=== PATIENT | male | born 1945 | race Caucasian/White ===

== ENCOUNTER 2019-09-11 02:35 | Inpatient (IN) | payer MEDICARE, OTHER ==
[~2019-09-11] VITALS: Ht 185.4 cm; Wt 149.1 kg
[~2019-09-11 02:35] MED LIST: ACTOS15 MG PO; ACTOS30 MG PO; AMITRIPTYLIN25 MG PO; APIDRA100 UNIT/M SC; BABY ASPIRIN81 MG PO; BD INS 0.5ML 31G5/16 SC; BD INSULIN SC; BENAZEPRIL10 M1 OR; BENAZEPRIL10 M1 PO; CIPROFLOXACN500 MG PO; COZAAR25 MG PO; CYMBALTA30 MG PO; DOXYCYCL HYC100 MG PO; FAMOTIDINE20 M3 PO; FUROSEMIDE20 MG PO; FUROSEMIDE40 MG PO; GABAPENTIN300 MG PO; GLUCOVANC1 OR; HUMALOG 751000 UNITS SC; HUMALOG KW75 MG/25 K SC; HUMALOG100 MG/ML SC; HUMALOG100 UNIT/M; HUMULI1 SC; INSULIN SY SC; INSULIN SY0.3 MG/36; INSULIN SY0.3 MG/36 SC; IRON27 MG PO; KEFLEX500 MG PO; LEVEMIR1000 UNITS SC; LIORESAL10 MG/TA1 PO; LIPITOR40 M1 PO; LOSARTAN POT100 MG PO; LOSARTAN POT50 MG PO; LYRICA75 MG PO; MELOXICAM15 MG PO; METFORMIN500 M2 PO; METHOCARBAM500 MG PO; METHOCARBAMOL500 MG PO; METO50TA52 PO; MUPIROCIN2 % EX; NEURONTIN600 MG PO; NEXIUM40 M1 PO; NORTHERA100 MG PO; NORVASC5 M1 PO; NOVOLIN R IJ; NOVOLOG100 IU/1 M SC; OMEPRAZOLE20 M1 PO; OMEPRAZOLE20 MG OR; OMEPRAZOLE20 MG PO; OXYCODO-APAP1 TA2 PO; PANTOPRAZOLE SO40 M1 PO; PAROXETINE20 MG PO; PAROXETINE40 MG PO; PEPCID20 MG PO; PRAMIPEXOLE0.25 MG PO; PRILOSEC20 MG PO; SIMVASTATIN10 MG PO; SIMVASTATIN5 MG PO; TOUJEO SOL300 UNIT/M SC; TRAMADOL HCL50 MG PO; TRESIBA FL100 UNIT/M SC; TRIAM/NYSTAT TOP; TRIAMCINOLON0.11 EX; TRULICITY1.5 MG/0.5 SC; ULTRAM50 M1 PO; VENLAFAXINE HCL75 M1 PO; VENLAFAXINE37.5 M1 PO; VENLAFAXINE75 M1 PO; VICTOZA18 MG/3 ML SC; VITAMIN D50000 UNIT PO; [UNRECOGNIZED DRUG - OTHER] SC; [UNRECOGNIZED DRUG - OTHER] SC; [UNRECOGNIZED DRUG - OTHER] SC; [UNRECOGNIZED DRUG - OTHER] XX
[2019-09-11 05:17] LABS: HEMATOCRIT 32.4 % (39.0-50.0); HEMOGLOBIN 10.8 g/dl (14.0-18.0); IMMATURE GRANULOCYTES 0.5 % (0.0-5.0); MEAN CELL VOLUME 103.2 fL CALC (80.0-100.0); MEAN CORPUSCULAR HGB 34.4 pG CALC (26.0-32.0); MEAN CORPUSCULAR HGB CONC 33.3 g/dL CAL (32.0-36.0); RED BLOOD COUNT 3.14 mill/uL (4.70-6.10); RED CELL DISTRI WIDTH 14.1 % (11.5-15.5)
[2019-09-11 05:19] LABS: PROTHROMBIN TIME 10.6 SECONDS (9.0-12.5)
[2019-09-11 05:26] LABS: ALBUMIN 3.9 g/dL (3.2-5.0); BILIRUBIN, TOTAL 2.2 mg/dL (0.0-1.4); CREATININE 3.4 mg/dL (0.7-1.3); MAGNESIUM 1.5 mg/dL (1.6-2.3); POTASSIUM 4.8 mmol/l (3.5-5.1); TOTAL PROTEIN 7.2 g/dL (6.3-8.2)
[2019-09-11 07:40] VITALS: BP 142/64
[2019-09-11 09:50] LABS: URINE BILIRUBIN - DIPSTICK NEGATIVE (NEGATIVE); URINE BLOOD DIPSTICK TRACE-INTACT (NEGATIVE); URINE COLOR YELLOW; URINE GLUCOSE - DIPSTICK NEGATIVE (NEGATIVE); URINE KETONE NEGATIVE (NEGATIVE); URINE LEUK ESTERASE NEGATIVE (NEGATIVE); URINE NITRITE - DIPSTICK NEGATIVE (Negative); URINE PROTEIN - DIPSTICK 100 mg/dL (NEG-TRACE); URINE SPECIFIC GRAVITY 1.025; URINE UROBILINOGEN - DIPSTICK 0.2 E.U./dL (0.2)
[2019-09-11 10:12] LABS: URINE MUCUS MODERATE hpf (NONE-FEW); URINE RBC 0-2 RBC/hpf (0-5)
[2019-09-11] MEDS ORDERED: TRESIBA FL200 UNIT/M (10:42)
[2019-09-11] MEDS ORDERED: EFFEXOR75 MG PO (10:44)
[2019-09-11] MEDS ORDERED: LOSARTAN POTASS25 MG PO (10:44)
[2019-09-11] MEDS ORDERED: PROTONIX40 M2 PO (10:44)
[2019-09-11] MEDS ORDERED: WEEKLY-D1.25 MG PO (10:46)
[2019-09-11 11:00] VITALS: BP 113/61
[2019-09-11 15:36] VITALS: BP 109/61
[2019-09-11] MEDS ORDERED: APIDRA100 UNIT/M (16:05)
[2019-09-11 18:15] VITALS: BP 98/50
[2019-09-11 18:20] VITALS: BP 114/50
[2019-09-11 18:25] VITALS: BP 61/35
== END 2019-09-11 22:46 | disposition left against medical advice (07) | DRG 684 ==
LOC: ED 02:35 → ED-I 06:11 → ED 06:32 → MS2 06:33
PROVIDERS: ADMIT Internal Medicine; ATTEND Internal Medicine
DX: N17.9 Acute kidney failure, unspecified (principal); I12.9 Hypertensive chronic kidney disease with stage 1 through stage 4 chronic kidney disease, or unspecified chronic kidney disease; E11.22 Type 2 diabetes mellitus with diabetic chronic kidney disease; N18.3 Chronic kidney disease, stage 3 (moderate); E86.0 Dehydration; I95.1 Orthostatic hypotension; R19.7 Diarrhea, unspecified; R53.1 Weakness; I27.20 Pulmonary hypertension, unspecified; Z79.4 Long term (current) use of insulin; Z20.828 Contact with and (suspected) exposure to other viral communicable diseases

== ENCOUNTER 2020-01-26 13:55 | Emergency (ER) | payer MEDICARE, OTHER ==
[~2020-01-26] VITALS: Ht 185.4 cm; Wt 145.0 kg
[~2020-01-26 13:55] MED LIST changes: +APIDRA100 UNIT/M; +EFFEXOR75 MG PO; +LOSARTAN POTASS25 MG PO; +PROTONIX40 M2 PO; +TRESIBA FL200 UNIT/M; +WEEKLY-D1.25 MG PO
[2020-01-26 14:19] LABS: HEMATOCRIT 29.9 % (39.0-50.0); HEMOGLOBIN 9.8 g/dl (14.0-18.0); IMMATURE GRANULOCYTES 0.7 % (0.0-5.0); MEAN CELL VOLUME 105.7 fL CALC (80.0-100.0); MEAN CORPUSCULAR HGB 34.6 pG CALC (26.0-32.0); MEAN CORPUSCULAR HGB CONC 32.8 g/dL CAL (32.0-36.0); NEUT# 5.65 thou/uL (1.82-7.42); RED BLOOD COUNT 2.83 mill/uL (4.70-6.10); RED CELL DISTRI WIDTH 13.8 % (11.5-15.5)
[2020-01-26 14:59] LABS: ACT PARTIAL THROMBO TIME 23.6 SECONDS (20.0-32.5); ALBUMIN 3.6 g/dL (3.2-5.0); ALKALINE PHOSPHATASE 198 u/l (38-126); ANION GAP 14 (6-22 (CALC)); BUN 47 mg/dL (8-23); BUN/CREATININE RATIO 19 (12-20 (CALC)); CARBON DIOXIDE 21 mmol/l (22-30); CHLORIDE 104 mmol/l (95-108); CREATININE 2.5 mg/dL (0.7-1.3); ETHYL ALCOHOL 0 mg/dl (0-30); GFR 25 ML/MIN (>=60 (CALC)); GFR FOR AFR.AMER. 31 ML/MIN (>=60 (CALC)); LIPASE 239 u/l (23-300); PROTHROMBIN TIME 10.2 SECONDS (9.0-12.5); SGOT/AST 33 u/l (19-48); SODIUM 133 mmol/l (137-146); TOTAL PROTEIN 6.6 g/dL (6.3-8.2)
[2020-01-26 15:15] LABS: POTASSIUM 5.5 mmol/l (3.5-5.1)
[2020-01-26 16:06] VITALS: BP 168/79
[2020-01-26 17:05] LABS: URINE BILIRUBIN - DIPSTICK NEGATIVE (NEGATIVE); URINE BLOOD DIPSTICK TRACE-LYSED (NEGATIVE); URINE COLOR YELLOW; URINE GLUCOSE - DIPSTICK NEGATIVE (NEGATIVE); URINE KETONE NEGATIVE (NEGATIVE); URINE LEUK ESTERASE NEGATIVE (NEGATIVE); URINE NITRITE - DIPSTICK NEGATIVE (Negative); URINE PH 5.5 (4.5-8.0); URINE PROTEIN - DIPSTICK 100 mg/dL (NEG-TRACE); URINE SPECIFIC GRAVITY 1.025; URINE UROBILINOGEN - DIPSTICK 0.2 E.U./dL (0.2)
[2020-01-26 17:16] LABS: URINE SQUAMOUS EPITHELIAL CELL FEW EPI/hpf (0-FEW); URINE WBC 0-2 WBC/hpf (0-5)
== END 2020-01-26 16:06 | disposition home or self-care (01) ==
LOC: ED 13:55
DX: R53.1 Weakness (principal); E11.22 Type 2 diabetes mellitus with diabetic chronic kidney disease; N18.9 Chronic kidney disease, unspecified; D64.9 Anemia, unspecified; I27.20 Pulmonary hypertension, unspecified; S90.812A Abrasion, left foot, initial encounter; S90.811A Abrasion, right foot, initial encounter; S40.812A Abrasion of left upper arm, initial encounter; S40.811A Abrasion of right upper arm, initial encounter; W01.0XXA Fall on same level from slipping, tripping and stumbling without subsequent striking against object, initial encounter; Y92.009 Unspecified place in unspecified non-institutional (private) residence as the place of occurrence of the external cause; Z79.4 Long term (current) use of insulin

== ENCOUNTER 2021-08-28 09:48 | Emergency (ER) | payer MEDICARE, OTHER ==
[2021-08-28] VITALS (7 sets, daily range): BP systolic 139–159; BP diastolic 52–70
[~2021-08-28] VITALS: Ht 185.4 cm; Wt 136.0 kg
[2021-08-28 10:42] LABS: HEMOGLOBIN 8.9 g/dl (14.0-18.0); IMMATURE GRANULOCYTES 1.3 % (0.0-5.0); MEAN CELL VOLUME 116.7 fL CALC (80.0-100.0); MEAN CORPUSCULAR HGB 37.1 pG CALC (26.0-32.0); MEAN CORPUSCULAR HGB CONC 31.8 g/dL CAL (32.0-36.0); NEUT# 2.65 thou/uL (1.82-7.42); RED BLOOD COUNT 2.4 mill/uL (4.70-6.10); RED CELL DISTRI WIDTH 16.3 % (11.5-15.5)
[2021-08-28 11:00] LABS: ALBUMIN 3.5 g/dL (3.2-5.0); CREATININE 2.5 mg/dL (0.7-1.3); TOTAL PROTEIN 6.7 g/dL (6.3-8.2)
[2021-08-28 11:05] LABS: BILIRUBIN, TOTAL 0.7 mg/dL (0.0-1.4); POTASSIUM 6.1 mmol/l (3.5-5.1)
[2021-08-28 14:34] LABS: CREATININE 2.4 mg/dL (0.7-1.3)
[2021-08-28 14:35] LABS: POTASSIUM 5.6 mmol/l (3.5-5.1)
[2021-08-28] MEDS ORDERED: SPS15 GM/601 PO ×2 (14:57→18:19)
[2021-08-28] MEDS ORDERED: ALL DAY10 MG PO ×2 (15:04→15:13)
== END 2021-08-28 15:15 | disposition home or self-care (01) ==
LOC: ED 09:48
PROVIDERS: Family Medicine
DX: E87.5 Hyperkalemia (principal); E87.70 Fluid overload, unspecified; I12.9 Hypertensive chronic kidney disease with stage 1 through stage 4 chronic kidney disease, or unspecified chronic kidney disease; E11.22 Type 2 diabetes mellitus with diabetic chronic kidney disease; N18.9 Chronic kidney disease, unspecified; Z79.4 Long term (current) use of insulin; E11.42 Type 2 diabetes mellitus with diabetic polyneuropathy; E66.9 Obesity, unspecified

== ENCOUNTER 2021-08-31 19:21 | Emergency (ER) | payer MEDICARE, OTHER ==
[~2021-08-31] VITALS: Ht 185.4 cm; Wt 133.6 kg
[2021-08-31] VITALS (18 sets, daily range): BP systolic 72–122; BP diastolic 37–80
[~2021-08-31 19:21] MED LIST changes: +ALL DAY10 MG PO; +SPS15 GM/601 PO
[2021-08-31 19:52] LABS: HEMOGLOBIN 9.8 g/dl (14.0-18.0); IMMATURE GRANULOCYTES 0.4 % (0.0-5.0); MEAN CELL VOLUME 118.3 fL CALC (80.0-100.0); MEAN CORPUSCULAR HGB 37.4 pG CALC (26.0-32.0); MEAN CORPUSCULAR HGB CONC 31.6 g/dL CAL (32.0-36.0); NEUT# 9.3 thou/uL (1.82-7.42); RED BLOOD COUNT 2.62 mill/uL (4.70-6.10); RED CELL DISTRI WIDTH 16.7 % (11.5-15.5)
[2021-08-31 20:17] LABS: ALBUMIN 3.2 g/dL (3.2-5.0); BILIRUBIN, TOTAL 0.9 mg/dL (0.0-1.4); CREATININE 3.4 mg/dL (0.7-1.3); MAGNESIUM 1.6 mg/dL (1.6-2.3); POTASSIUM 5.4 mmol/l (3.5-5.1); TOTAL PROTEIN 6.3 g/dL (6.3-8.2)
[2021-08-31] MEDS ORDERED: PROMETHAZINE HY25 M1 PO (22:35)
[2021-08-31] MEDS ORDERED: IMODIUM2 MG PO (22:35)
[2021-09-01 00:01] VITALS: BP 104/53
[2021-09-01 00:16] VITALS: BP 104/53
== END 2021-09-01 00:10 | disposition home or self-care (01) ==
LOC: ED 19:21
PROVIDERS: Family Medicine
DX: E86.0 Dehydration (principal); E87.5 Hyperkalemia; E11.22 Type 2 diabetes mellitus with diabetic chronic kidney disease; N18.9 Chronic kidney disease, unspecified; I27.20 Pulmonary hypertension, unspecified; C95.90 Leukemia, unspecified not having achieved remission; F17.200 Nicotine dependence, unspecified, uncomplicated; Z79.4 Long term (current) use of insulin; Z20.822 Contact with and (suspected) exposure to COVID-19

== ENCOUNTER 2021-09-04 09:00 | Observation (INO) | payer MEDICARE, OTHER ==
[~2021-09-04] VITALS: Ht 185.4 cm; Wt 131.0 kg
[~2021-09-04 09:00] MED LIST changes: +IMODIUM2 MG PO; +PROMETHAZINE HY25 M1 PO
--- NOTE | 2021-09-04 09:00 | NUR ---
BEDSIDE REPORT FROM [facility]
[2021-09-04 09:30] LABS: HEMATOCRIT 25.5 % (39.0-50.0); HEMOGLOBIN 8.5 g/dl (14.0-18.0); IMMATURE GRANULOCYTES 1.6 % (0.0-5.0); MEAN CORPUSCULAR HGB 36.8 pG CALC (26.0-32.0); MEAN CORPUSCULAR HGB CONC 33.3 g/dL CAL (32.0-36.0); NEUT# 2.18 thou/uL (1.82-7.42); RED BLOOD COUNT 2.31 mill/uL (4.70-6.10); RED CELL DISTRI WIDTH 16.1 % (11.5-15.5)
[2021-09-04 09:31] LABS: MEAN CELL VOLUME 110.4 fL CALC (80.0-100.0)
--- NOTE | 2021-09-04 09:40 | NUR ---
Reassessment of patient completed. No distress noted.
[2021-09-04 09:48] LABS: ALBUMIN 3.3 g/dL (3.2-5.0); BILIRUBIN, TOTAL 0.8 mg/dL (0.0-1.4); TOTAL PROTEIN 6.5 g/dL (6.3-8.2)
[2021-09-04 10:00] LABS: CREATININE 2.3 mg/dL (0.7-1.3); POTASSIUM 5.6 mmol/l (3.5-5.1)
--- NOTE | 2021-09-04 11:21 | NUR ---
Reassessment of patient completed. No distress noted.
--- NOTE | 2021-09-04 12:33 | NUR ---
PT STABLE FOR TRANSFER TO [facility]. REPORT GIVEN TO SAV AT BEDSIDE. Reassessment of patient completed. No distress noted.
[2021-09-04 13:00] VITALS: BP 155/93
--- NOTE | 2021-09-04 13:41 | NUR ---
RECEIVE REPORT FROM ER NURSE LOLA AVELAR. PATIENT ALERT AND ORIENTED X3. NO REPORT PAIN OR DISCOMFORT AT THIS TIME. VITAL SIGNS ARE EVALUATED. EDUCATED PATIENT ABOUD ADMISSION, MEDICATIONS AND NURSING PLAN FOR TODAY. PATIENT REFER UNDERSTAND.
--- NOTE | 2021-09-04 16:20 | NUR ---
PATIENT STABLE AT THIS TIME. NO REFER PAIN. PATIENT RESTING IN BED.
--- NOTE | 2021-09-04 17:08 | NUR ---
DIABETIC PATIENT CHRISTIE INSULIN TO THE HOSPITAL AND STATES THAT HE DOES NOT WANT TO BE ADMINISTERED THE HOSPITAL INSULIN. I NOTIFY DOCTOR JADA AND ELLIE FROM PHARMACY. PATIENT IS EDUCATED.
[2021-09-04 18:47] VITALS: BP 150/76
--- NOTE | 2021-09-04 20:06 | NUR ---
Patient decides to leave AMA. Multiple attempts made to ecourage patient to remain here for continued treatment. Explained to patient all risks of leaving against medical advice including . Pt verbalized understanding of all risks. Pt also encouraged to return to [facility] at any time, especially if symptoms continue or become worse. Pt verbalized understanding.
== END 2021-09-04 20:00 | disposition left against medical advice (07) ==
LOC: ED 09:00 → ED-I 09:50 → ED 10:54 → MS2 10:55
PROVIDERS: Family Medicine; ADMIT Hospitalist; ATTEND Hospitalist
DX: R07.9 Chest pain, unspecified (principal); E11.9 Type 2 diabetes mellitus without complications; I27.20 Pulmonary hypertension, unspecified; F17.200 Nicotine dependence, unspecified, uncomplicated; Z98.84 Bariatric surgery status; Z79.4 Long term (current) use of insulin; Z20.822 Contact with and (suspected) exposure to COVID-19
CPT/HCPCS: G0378

== ENCOUNTER 2022-12-21 11:43 | Inpatient (IN) | payer MEDICARE, OTHER ==
[~2022-12-21] VITALS: Ht 185.4 cm; Wt 129.4 kg
[2022-12-21] VITALS (10 sets, daily range): BP systolic 123–161; BP diastolic 53–79
[~2022-12-21 11:43] MED LIST changes: -TRESIBA FL200 UNIT/M
[2022-12-21 12:26] LABS: HEMATOCRIT 23.3 % (39.0-50.0); HEMOGLOBIN 7.6 g/dl (14.0-18.0); MEAN CORPUSCULAR HGB 31.9 pG CALC (26.0-32.0); MEAN CORPUSCULAR HGB CONC 32.6 g/dL CAL (32.0-36.0); RED BLOOD COUNT 2.38 mill/uL (4.70-6.10); RED CELL DISTRI WIDTH 20.3 % (11.5-15.5)
[2022-12-21 12:29] LABS: MEAN CELL VOLUME 97.9 fL CALC (80.0-100.0)
[2022-12-21 12:30] LABS: BASO% 0.6 % (0-3); EOS% 0.8 % (0-8); IMMATURE GRANULOCYTES 0.9 % (0.0-5.0); LYMPH% 11.1 % (15-41); MONO% 47.3 % (2-13); NEUT# 3.03 thou/uL (1.82-7.42); NEUT% 39.3 % (42-76)
[2022-12-21 12:38] LABS: ALBUMIN 3.1 g/dL (3.2-5.0); CREATININE 3.1 mg/dL (0.7-1.3)
[2022-12-21 12:39] LABS: BILIRUBIN, TOTAL 1.2 mg/dL (0.2-1.3); POTASSIUM 5.6 mmol/l (3.5-5.1)
[2022-12-21 13:33] LABS: URINE BILIRUBIN - DIPSTICK Negative (NEGATIVE); URINE BLOOD DIPSTICK Small (NEGATIVE); URINE GLUCOSE - DIPSTICK 100 mg/dL (NEGATIVE); URINE KETONE Negative (NEGATIVE); URINE LEUK ESTERASE Negative (NEGATIVE); URINE NITRITE - DIPSTICK Negative (Negative); URINE PROTEIN - DIPSTICK >=300 mg/dL (NEG-TRACE); URINE UROBILINOGEN - DIPSTICK 0.2 E.U./dL (0.2)
[2022-12-21 13:34] LABS: URINE COLOR Yellow
[2022-12-21 14:02] LABS: URINE EPITHELIAL CELLS FEW EPI/hpf (0-FEW); URINE RBC 0-2 RBC/hpf (0-5); URINE WBC 0-2 WBC/hpf (0-5)
[2022-12-21] MEDS ORDERED: ROCALTROL0.25 MCG PO (15:47)
[2022-12-21] MEDS ORDERED: HYDRALAZINE10 MG PO (15:48)
[2022-12-21] MEDS ORDERED: DRISDOL50000 UNIT PO (15:48)
[2022-12-21] MEDS ORDERED: TOPROL XL25 MG PO (15:50)
[2022-12-21] MEDS ORDERED: SODIUM BICAR650 MG PO (15:50)
[2022-12-21] MEDS ORDERED: FIASP100 UNIT/M (15:50)
[2022-12-21] MEDS ORDERED: LOKELMA10 GM PO (15:51)
[2022-12-21] MEDS ORDERED: B-1100 MG PO (15:52)
[2022-12-21] MEDS ORDERED: ULTRAM50 MG PO (15:53)
[2022-12-21] MEDS ORDERED: EFFEXOR XR75 MG/CAP PO (15:53)
[2022-12-22 00:09] VITALS: BP 148/56
[2022-12-22 05:00] VITALS: BP 166/65
[2022-12-22 07:39] VITALS: BP 156/65
[2022-12-22 07:45] LABS: ALBUMIN 2.9 g/dL (3.2-5.0); BILIRUBIN, TOTAL 1.3 mg/dL (0.2-1.3); CREATININE 3.1 mg/dL (0.7-1.3)
[2022-12-22 07:46] LABS: POTASSIUM 5.2 mmol/l (3.5-5.1)
[2022-12-22 07:50] LABS: HEMATOCRIT 22.4 % (39.0-50.0); HEMOGLOBIN 7.3 g/dl (14.0-18.0); MEAN CORPUSCULAR HGB 31.6 pG CALC (26.0-32.0); MEAN CORPUSCULAR HGB CONC 32.6 g/dL CAL (32.0-36.0); RED BLOOD COUNT 2.31 mill/uL (4.70-6.10); RED CELL DISTRI WIDTH 20.4 % (11.5-15.5)
[2022-12-22 08:14] LABS: MANUAL DIFFERENTIAL YES; PLATELET COUNT 16 thou/uL (130-400)
[2022-12-22 08:17] LABS: IMMATURE CELLS 1 %; NUCLEATED RED BLOOD CELL 1 /100WBC (0-1)
[2022-12-22 08:18] LABS: POIKILOCYTOSIS FEW
[2022-12-22 08:19] LABS: ANISOCYTOSIS MODERATE; PLATELET ESTIMATE MARKED DECREASE; SPHEROCYTE FEW
[2022-12-22 08:20] LABS: POLYCHROMASIA FEW
[2022-12-22 08:56] VITALS: BP 145/54
[2022-12-22 12:38] LABS: HEMATOCRIT 22.4 % (39.0-50.0); HEMOGLOBIN 7.3 g/dl (14.0-18.0); MEAN CELL VOLUME 96.1 fL CALC (80.0-100.0); MEAN CORPUSCULAR HGB 31.3 pG CALC (26.0-32.0); MEAN CORPUSCULAR HGB CONC 32.6 g/dL CAL (32.0-36.0); RED BLOOD COUNT 2.33 mill/uL (4.70-6.10); RED CELL DISTRI WIDTH 20.1 % (11.5-15.5)
[2022-12-22 12:53] LABS: BASO% 0.5 % (0-3); EOS% 0.1 % (0-8); IMMATURE GRANULOCYTES 0.7 % (0.0-5.0); LYMPH% 6.7 % (15-41); MONO% 55.7 % (2-13); NEUT# 4.84 thou/uL (1.82-7.42); NEUT% 36.3 % (42-76)
[2022-12-22 16:01] VITALS: BP 140/78
[2022-12-22 19:22] VITALS: BP 137/45
[2022-12-23] VITALS (11 sets, daily range): BP systolic 90–145; BP diastolic 45–67
[2022-12-23 07:02] LABS: MAGNESIUM 1.4 mg/dL (1.6-2.3)
[2022-12-23 07:03] LABS: ALBUMIN 2.9 g/dL (3.2-5.0); CREATININE 3.5 mg/dL (0.7-1.3); POTASSIUM 4.8 mmol/l (3.5-5.1)
[2022-12-23 07:11] LABS: HEMATOCRIT 20.2 % (39.0-50.0); MEAN CELL VOLUME 95.7 fL CALC (80.0-100.0); MEAN CORPUSCULAR HGB 31.8 pG CALC (26.0-32.0); MEAN CORPUSCULAR HGB CONC 33.2 g/dL CAL (32.0-36.0); RED BLOOD COUNT 2.11 mill/uL (4.70-6.10); RED CELL DISTRI WIDTH 20.2 % (11.5-15.5)
[2022-12-23 07:36] LABS: ALBUMIN 2.8 g/dL (3.2-5.0); BILIRUBIN, TOTAL 1.3 mg/dL (0.2-1.3); CREATININE 3.5 mg/dL (0.7-1.3); POTASSIUM 4.8 mmol/l (3.5-5.1); TOTAL PROTEIN 5.7 g/dL (6.3-8.2)
[2022-12-23 07:57] LABS: HEMOGLOBIN 6.7 g/dl (14.0-18.0)
[2022-12-23 13:16] LABS: MANUAL DIFFERENTIAL YES
[2022-12-23 14:05] LABS: NUCLEATED RED BLOOD CELL 1 /100WBC (0-1)
[2022-12-23 14:06] LABS: ANISOCYTOSIS MODERATE; POIKILOCYTOSIS FEW; POLYCHROMASIA FEW
[2022-12-23 14:07] LABS: PLATELET ESTIMATE MARKED DECREASE; TEAR DROP CELLS FEW
[2022-12-23 14:12] LABS: BAND 1 % (0-8)
== END 2022-12-23 18:45 | disposition short-term general hospital (02) | DRG 871 ==
LOC: ED 11:43 → ED-I 13:38 → ED 13:38 → ED-I 14:10 → ED 14:25 → MS2 14:26
PROVIDERS: Internal Medicine Nephrology; Nurse Practitioner; Nurse Practitioner Family; ADMIT Student in an Organized Health Care Education/Training Program; ATTEND Student in an Organized Health Care Education/Training Program
PROC: 30233R1 Transfusion of Nonautologous Platelets into Peripheral Vein, Percutaneous Approach (ICD-10-PCS; principal; 2022-12-23)
PROC: 30233N1 Transfusion of Nonautologous Red Blood Cells into Peripheral Vein, Percutaneous Approach (ICD-10-PCS; 2022-12-23)
DX: A41.9 Sepsis, unspecified organism (principal); D65 Disseminated intravascular coagulation [defibrination syndrome]; I63.413 Cerebral infarction due to embolism of bilateral middle cerebral arteries; I63.441 Cerebral infarction due to embolism of right cerebellar artery; G82.50 Quadriplegia, unspecified; N17.9 Acute kidney failure, unspecified; N18.4 Chronic kidney disease, stage 4 (severe); E87.1 Hypo-osmolality and hyponatremia; E87.20 Acidosis, unspecified; R65.20 Severe sepsis without septic shock; H53.8 Other visual disturbances; R29.711 NIHSS score 11; D46.9 Myelodysplastic syndrome, unspecified; E11.22 Type 2 diabetes mellitus with diabetic chronic kidney disease; E87.5 Hyperkalemia; I27.20 Pulmonary hypertension, unspecified; Z98.84 Bariatric surgery status; Z79.4 Long term (current) use of insulin
CPT/HCPCS: P9016; P9034